=== PATIENT | female | born 1970 | race Caucasian/White ===

== ENCOUNTER 2017-10-02 16:37 | Outpatient (CLI) | payer BC ==
[2017-10-02 17:09] LABS: Hematocrit 40.1 % (36.0-47.0); Mean Platelet Volume 6.4 fL (7.4-10.4); Red Blood Cell (RBC) Count 4.67 mill/uL (4.20-5.40); White Blood Cell (WBC) Count 10.3 thou/uL (4.8-10.8)
[2017-10-02 17:28] LABS: Anion Gap 9 mmol/L (10-20); BUN (Urea Nitrogen) 16 mg/dL (7.0-18.7); Calc. Creatinine Clearance 0 mL/min (70-130); Calcium 9.6 mg/dL (7.8-10.44); Carbon Dioxide 26 mmol/L (22-29); Chloride 107 mmol/L (98-107); Estimated GFR-MDRD 79
== END 2017-10-02 16:38 | disposition home or self-care (01) ==
LOC: LABBT 16:37
PROVIDERS: ATTEND Obstetrics & Gynecology
DX: Z01.812 Encounter for preprocedural laboratory examination (principal); N85.8 Other specified noninflammatory disorders of uterus; N99.820 Postprocedural hemorrhage of a genitourinary system organ or structure following a genitourinary system procedure
CPT/HCPCS: 80048; 85027; 86850; 86900; 86901

== ENCOUNTER 2017-10-08 10:54 | Day surgery (SDC) | payer BC ==
[2017-10-02 17:01] VITALS: BMI 39.1
--- NOTE | 2017-10-07 21:28 | HP ---
REASON FOR ADMISSION: Left lower quadrant pain, persistent ovarian cysts, status post hysterectomy w ith vaginal spotting status post supracervical hysterectomy. SCHEDULED PROCEDURE: Laparoscopic right salpingo-oophorectomy with trachelectomy with da Wolfgang robot -assist. HISTORY OF PRESENT ILLNESS: Ms. Ellis is a 47-year-old G1, P1 who had a supracervical hysterectomy fo r menorrhagia with retained ovaries in 2008. She reports she has had intermittent spotting since the n and also recurrent episodes of left lower quadrant pain. CT, sono, and MRI have all shown a 3-4 cm left ovarian cyst and the patient desires removal. The patient also reports that she has occasional stress incontinence and overactive bladder symptoms. She declined to wait for further evaluation an d/or medical versus surgical treatment evaluation for these issues at the same time as the surgery. OB AND LIABILITY CLAIMS EXAMINER HISTORY: As noted. No history of STDs. PAST MEDICAL HISTORY: Significant for chronic sinusitis, asthma, reflux, hyperlipidemia and coronary artery disease. PAST SURGICAL HISTORY: Supracervical hysterectomy in 2008, LAD, cardiac stent in 2012 and sinus surg darrell. Of note, the patient has had recent cardiac catheterization with [facility], which rev ealed her to have no new lesions that require stents and no elevated risk beyond baseline for her clint yg. ALLERGIES: PENICILLIN, SULFA, TRAMADOL and ZITHROMAX. MEDICATIONS: Include aspirin, albuterol, Antara, Coreg, Crestor, lisinopril, Synthroid and omeprazol e. REVIEW OF SYSTEMS: Noncontributory. PHYSICAL EXAMINATION: GENERAL: female, 5 foot 3-27 and BMI of 48. VITAL SIGNS: Blood pressure 118/84. HEENT: Within normal limits. LUNGS: Clear to auscultation bilaterally. HEART: Regular rhythm. BREASTS: No masses bilaterally. ABDOMEN: Soft, nontender with discomfort to deep palpation in the left lower quadrant. PELVIC: Vulva without lesions. Vagina without discharge. Cervix is parous. No masses are noted on bimanual exam. EXTREMITIES: Without clubbing, cyanosis or edema. IMPRESSION: Persistent left ovarian cyst and spotting with negative Pap smear, status post supracerv ical hysterectomy. PLAN: Discussed with patient her options. She desires removal of the ovary as well as trachelectomy . She understands the risks and benefits of the procedure; they include bleeding, infection, injury to the bladder, persistent bleeding, persistent left lower quadrant pain. We will administer appropr iate antibiotic prophylaxis considering the patient's allergies and SCD prophylaxis for DVT.
[2017-10-08] MEDS ORDERED: Levofloxacin 500 mg/D5W 100 ml Premix Bag ONE (11:22)
[2017-10-08] MEDS ORDERED: Clindamycin/D5W 900 mg/50 ml Premix Bag ONE (11:22)
[2017-10-08] MEDS ORDERED: Bupivacaine/Epinephrine 0.25% 30 ML VIAL ONE (11:41)
[2017-10-08] MEDS ORDERED: Midazolam HCl 2 mg/2 ml Vial ONE (11:42)
[2017-10-08] MEDS ORDERED: Fentanyl 100 MCG/2 ML VIAL ONE (11:42)
[2017-10-08] MEDS ORDERED: Phenylephrine 10 MG/NS 250 ML 0 ML ONE (11:43)
[2017-10-08] MEDS ORDERED: HYDROmorphone 0.5 MG/0.5 ML SYRINGE ONE (11:43)
[2017-10-08] MEDS ORDERED: Glycopyrrolate 0.2 MG/ML 5 ML SYRINGE ONE (14:34)
[2017-10-08] MEDS ORDERED: Propofol 200 MG/20 ML VIAL ONE (14:34)
[2017-10-08] MEDS ORDERED: PHENYLEPHRINE-NS 100 MCG/ML 10 ML SYRINGE ONE (14:34)
[2017-10-08] MEDS ORDERED: Lidocaine 1% PF 5 ML VIAL ONE (14:34)
[2017-10-08] MEDS ORDERED: ePHEDrine/0.9% NaCl/PF SYRINGE 50 mg/10 ml ONE (14:34)
[2017-10-08] MEDS ORDERED: Ondansetron HCl/PF 4 MG/2 ML Vial ONE (14:34)
[2017-10-08] MEDS ORDERED: Promethazine HCl 25 MG/ML VIAL ONE (15:03)
--- NOTE | 2017-10-08 17:13 | OP ---
DATE OF PROCEDURE: 10/08/2017 PREOPERATIVE DIAGNOSES: Left lower quadrant pain with persistent left ovarian cyst and bleeding, sta tus post laparoscopic supracervical hysterectomy. POSTOPERATIVE DIAGNOSES: Left lower quadrant pain with persistent left ovarian cyst and bleeding, st atus post laparoscopic supracervical hysterectomy. PROCEDURES: Left salpingo-oophorectomy, laparoscopic trachelectomy da Wolfgang robot-assist. SURGEON: Calvin Olson M.D. COMBINATION TECHNICIAN: Mike Harden D.O. ESTIMATED BLOOD LOSS: 25 mL COMPLICATIONS: None. DRAINS: Moore to gravity removed at the end of the case. SPECIMENS REMOVED: Cervix and left tube and ovary. OPERATIVE FINDINGS: 1. Approximately 2.5 to 3 cm long cervix, status post LSH. 2. Simple cystic left ovary with tube and mild filmy adhesions to the pelvic side wall. 3. Normal appearing right tube and ovary. DISPOSITION: Recovery room, day stay, and home. FOLLOWUP: [facility] in 4 weeks. DESCRIPTION OF OPERATIVE PROCEDURE: After obtaining proper informed consent, the patient was taken t o the operating room where general endotracheal anesthesia was achieved without difficulty. The diya ent was prepped and draped in dorsal lithotomy position in Stanley stirrups. Side hand speculum placed in vagina and cervix identified. Cervix was not long enough to facilitate the placement of a NIR m anipulator, so it was grasped with double tooth tenaculum anteriorly and posteriorly, and a narrow De aver placed in the vagina to help facilitate identification of the vesicouterine peritoneal reflectio n and the anterior cul-de-sac. Moore catheter had been placed and production line operator changed his gloves and tu rned his attention to the abdominal portion of procedure. Five mL of Marcaine injected at the superi or aspect of the umbilicus. A 12 mm skin incision made and Veress needle placed in the abdominal cav ity. Confirmation of entry into the peritoneal cavity via saline drop test. Insufflation carried ou t with carbon dioxide to a max pressure of 15, volume approximately 3.5 liters. A 2 mm trocar placed under direct visualization with confirmation of entry into the peritoneal cavity without trauma to v iscera. The patient was placed in steep Trendelenburg and right and left lateral robot trocars were placed 8 mm lateral to the epigastric vessels and an 11 mm ssn/ssbn assistant navigator port in the right upper quadrant . Pelvic survey and mobilization was carried out. The left adnexa was identified, elevated, thin fi lmy adhesions taken down, the IP ligament identified and coagulated adjacent to the ovary, they jarret ed through the mesosalpinx removing the fallopian tube. The specimen was placed in the cul-de-sac fo r retrieval. Good hemostasis noted throughout. The cervix was pushed in using the double tooth miki culum, thin filmy adhesions along this were taken down and the bladder was backfilled to identify its location. The peritoneum was then incised over the apex of the cervical stump, and the peritoneum a nd bladder were dissected off the lower aspect of the cervix in the upper vagina. Backfilling confir med that it was taken down and the Hanover retractor was placed identifying exactly where the anterior cul-de-sac was. Peritoneum was taken off posteriorly as well. Incision was made anteriorly at 12 o 'clock entering the vagina and identifying the edges of the cervix using the bipolar and monopolar. Coagulation and transection were used to completely excise the cervix in a circumferential manner and it was placed in the vagina. Broad sponge stick was then placed in the vagina after retrieval of th e ovary, tube, and cervix to maintain pneumoperitoneum. Suction irrigation carried out and the vagin a closed in a 2-layer level using a Stratafix running continuous suture. Good hemostasis was noted. An Kirk was applied across all surgical castellanos. No bleeding was noted. The da Wolfgang robot was un docked after removing the instruments. The abdomen desufflated carbon dioxide. Trocars were removed x4. Fascia reapproximated at the umbilicus using a UR 5-0 Vicryl suture and the subcuticular 4-0 Mo nocryl applied along with Dermabond. Moore catheter was removed. The vagina was noted to be dry and the patient was awakened, extubated, and taken to the recovery room in good condition and will be di scharged home from day stay.
[2017-10-08] MEDS ORDERED: HYDROcodone/Acetaminophen 5/325 mg Tablet ONE (17:15)
== END 2017-10-08 17:45 | disposition home or self-care (01) ==
LOC: SDC 10:54
PROVIDERS: ATTEND Obstetrics & Gynecology
PROC: 0UT64ZZ Resection of Left Fallopian Tube, Percutaneous Endoscopic Approach (ICD-10-PCS; principal; 2017-10-08)
PROC: 0UT14ZZ Resection of Left Ovary, Percutaneous Endoscopic Approach (ICD-10-PCS; principal; 2017-10-08)
DX: N83.12 Corpus luteum cyst of left ovary (principal); N83.8 Other noninflammatory disorders of ovary, fallopian tube and broad ligament; N72 Inflammatory disease of cervix uteri; J45.909 Unspecified asthma, uncomplicated; K21.9 Gastro-esophageal reflux disease without esophagitis; E78.5 Hyperlipidemia, unspecified; I25.10 Atherosclerotic heart disease of native coronary artery without angina pectoris; F41.9 Anxiety disorder, unspecified; I10 Essential (primary) hypertension; G43.909 Migraine, unspecified, not intractable, without status migrainosus; E66.09 Other obesity due to excess calories; Z68.39 Body mass index [BMI] 39.0-39.9, adult; Z83.3 Family history of diabetes mellitus; Z88.0 Allergy status to penicillin; Z88.1 Allergy status to other antibiotic agents; Z88.8 Allergy status to other drugs, medicaments and biological substances; Z88.5 Allergy status to narcotic agent; Z91.013 Allergy to seafood; Z79.82 Long term (current) use of aspirin; Z79.51 Long term (current) use of inhaled steroids; Z79.899 Other long term (current) drug therapy; Z95.5 Presence of coronary angioplasty implant and graft; Z90.711 Acquired absence of uterus with remaining cervical stump
CPT/HCPCS: 88305; 88307; J0131; J1170; J1956; J2001; J2250; J2405; J2550; J2704; J3010; J3490; Q9968

== ENCOUNTER 2018-03-06 00:06 | Emergency (ER) | payer BC ==
[2018-03-06 01:05] LABS: #Basophils 0.1 thou/uL (0.0-0.2); #Eosinphils 0.2 thou/uL (0.0-0.7); #Monocytes 0.8 thou/uL (0.11-0.59); #Neutrophils 8.5 thou/uL (1.40-6.50); %Basophils 0.9 % (0.0-1.0); %Eosinophils 1.9 % (0.0-10.0); %Lymphocytes 23.4 % (21.0-51.0); %Monocytes 6.3 % (0.0-10.0); %Neutrophils 67.5 % (42.0-75.0); Hemoglobin 14.4 g/dL (12.0-16.0); Mean Corpuscular HGB CONC 34.1 g/dL (32.0-36.0); Mean Corpuscular Hemoglobin 28.5 pg (27.0-31.0); Mean Corpuscular Volume 83.8 fl (81.0-99.0); Mean Platelet Volume 6.6 fL (7.4-10.4); Platelet Count 334 thou/uL (130-400); Red Blood Cell (RBC) Count 5.03 mill/uL (4.20-5.40); White Blood Cell (WBC) Count 12.6 thou/uL (4.8-10.8)
[2018-03-06 01:22] LABS: ALT (SGPT) 13 U/L (8-55); AST (SGOT) 10 U/L (5-34); Albumin 3.6 g/dL (3.5-5.0); Alkaline Phosphatase 65 U/L (40-150); Anion Gap 10 mmol/L (10-20); BUN (Urea Nitrogen) 14 mg/dL (7.0-18.7); Bilirubin, Total 0.3 mg/dL (0.2-1.2); Calc. Creatinine Clearance 0 mL/min (70-130); Calcium 9.2 mg/dL (7.8-10.44); Carbon Dioxide 25 mmol/L (22-29); Chloride 108 mmol/L (98-107); Estimated GFR-MDRD 59; Glucose 171 mg/dL (70-105); Potassium 3.8 mmol/L (3.5-5.1); Protein, Total 6.6 g/dL (6.0-8.3); Sodium 139 mmol/L (136-145)
[2018-03-06 01:26] LABS: CKMB 0.6 ng/mL (0-6.6); Troponin I Less than 0.010 ng/mL (< 0.028)
[2018-03-06] MEDS ORDERED: Mag-Al 1200 mg/1200 mg/30 ML UDCUP ONE (04:02)
[2018-03-06] MEDS ORDERED: Lidocaine Viscous Sol 2% 15 ml UD Cup ONE (04:02)
--- NOTE | 2018-03-06 08:11 | RAD ---
2 VIEWS CHEST: Date: 03/06/18 PROVIDED CLINICAL HISTORY: Shortness of breath. FINDINGS: Comparison made with the study dated 11/21/16. Cardiac and mediastinal silhouette is unchanged in appearance. No focal consolidation, pleural fluid, or pneumothorax apparent. Degenerative changes and scoliosis are seen involving the thoracic spine. IMPRESSION: No evidence for an acute cardiopulmonary process. POS: [facility]
== END 2018-03-06 04:02 | disposition home or self-care (01) ==
LOC: ERS 00:06
DX: K21.9 Gastro-esophageal reflux disease without esophagitis (principal); I10 Essential (primary) hypertension; E78.5 Hyperlipidemia, unspecified; J45.909 Unspecified asthma, uncomplicated; Z79.82 Long term (current) use of aspirin; Z79.899 Other long term (current) drug therapy; Z79.51 Long term (current) use of inhaled steroids
CPT/HCPCS: 36415; 71046; 80053; 82553; 84484; 85025; 93005

== ENCOUNTER 2018-05-19 08:38 | Outpatient (CLI) | payer BC ==
--- NOTE | 2018-05-19 10:23 | RAD ---
CHEST 2 VEIWS: Date: 05/19/18 HISTORY: Dyspnea. COMPARISON: 03/06/18. FINDINGS: Cardiac silhouette and pulmonary vasculature are unremarkable. Mediastinum is midline. Slight S-shape d rotatory scoliotic curvature of the thoracic spine. Mild linear atelectasis right lung base is stab le. No confluent air space consolidation, pneumothorax, or pleural fluid. IMPRESSION: Chronic-type findings are stable. No active cardiopulmonary abnormalities are demonstrated. POS: L[facility]ARD[facility]
== END 2018-05-19 08:39 | disposition home or self-care (01) ==
LOC: RAD 08:38
PROVIDERS: ATTEND Internal Medicine Critical Care Medicine
DX: R06.00 Dyspnea, unspecified (principal)
CPT/HCPCS: 71046

== ENCOUNTER 2018-09-04 07:59 | Outpatient (CLI) | payer BC | END 2018-09-04 08:00 | disposition home or self-care (01) | LOC: BICMAMMO 07:59 | PROVIDERS: ATTEND Student in an Organized Health Care Education/Training Program | DX: Z12.31 Encounter for screening mammogram for malignant neoplasm of breast (principal); R92.1 Mammographic calcification found on diagnostic imaging of breast; Z80.3 Family history of malignant neoplasm of breast | CPT/HCPCS: 77063; 77067 ==